=== PATIENT | male | born 2000 | race Caucasian/White ===

== ENCOUNTER 2020-12-16 07:00 | Outpatient (CLI) | payer BC ==
--- NOTE | 2020-12-17 08:50 | XRAY Report ---
PROCEDURE: Knee 3 View RT INDICATIONS: R KNEE PX TECHNIQUE: 3 views of the right knee(s) were acquired. COMPARISON: None. FINDINGS: Bones: No acute fractures or dislocations. No suspicious bony lesions. Note is made of possible pr ior elevation of the upper anterior margin of the patellar tendon insertion without overlying soft ti ssue swelling, versus normal anatomic variant in this area. By appearance this is long-standing. Soft tissues: No joint effusion. No suspicious soft tissue calcifications. IMPRESSION: Elevation of the upper anterior margin of the patellar tendon insertion, without swellin g. Normal morphologic variant is the presumed cause. Old trauma also conceivably could produce that a ppearance. No effusion or loose body found. Reviewed by: Nhan Dyer MD on 12/17/2020 8:49 AM PDT Approved by: Nhan Dyer MD on 12/17/2020 8:49 AM PDT Station ID: [id number]
== END 2020-12-16 23:59 ==
LOC: DI.N 07:00
PROVIDERS: ATTEND Family Medicine
DX: M25.561 Pain in right knee (principal)